=== PATIENT | male | born 1950 | race Caucasian/White ===

== ENCOUNTER → 2019-03-22 09:25 | Outpatient (CLI) | payer MEDICARE, OTHER, SELFPAY ==
[2019-03-22 10:08] LABS: Hematocrit 46.3 % (41-53); Mean Corpuscular HGB Conc 34.6 % (30-36); Mean Corpuscular Hemoglobin 33.6 PG (26-34); Mean Corpuscular Volume 96.9 fL (80-100); Platelet Count 239 X10^3/uL (150-400); Red Blood Cell Count 4.78 X10^6/uL (4.5-5.9); Red Cell Distribution Width 13.1 % (11.6-14.8); White Blood Cell Count 7.6 X10^3/uL (4.5-11.0)
[2019-03-22 10:19] LABS: Appearance Urine UA CLEAR; Bilirubin Urine UA NEGATIVE (NEGATIVE); Color Urine UA YELLOW; Glucose Urine UA NEGATIVE (Negative); Ketones Urine UA NEGATIVE (NEGATIVE); Leukocyte Esterase Urine UA NEGATIVE (NEGATIVE); Nitrite Urine UA NEGATIVE (Negative); Occult Blood Urine UA NEGATIVE (Negative); Protein Urine UA NEGATIVE (Negative); Specific Gravity Urine UA 1.015 (1.000-1.035); Urobilinogen Urine UA 0.2 E.U./dL (0.2)
[2019-03-22 10:44] LABS: Alanine Aminotransferase 31 IU/L (21-72); Albumin 4.4 g/dL (3.5-5.0); Albumin Globulin Ratio 1.7 (1.0-2.8); Alkaline Phosphatase 60 U/L (38-126); Aspartate Aminotransferase 26 IU/L (17-59); BUN Creatinine Ratio 16.3 (6-22); Blood Urea Nitrogen 13 mg/dL (9-20); Calcium 9.9 mg/dL (8.4-10.2); Carbon Dioxide 29 mmol/L (22-32); Chloride 103 mmol/L (98-107); Estimated Glomerular Filt Rate > 60.0 mL/min (>60); Globulin 2.6 g/dL (1.7-4.1); Glucose 91 mg/dL (80-110); HEMOLYSIS < 15 (0-50); Potassium 4.8 mmol/L (3.4-5.1); Sodium 141 mmol/L (137-145)
[2019-03-22 11:11] LABS: Thyroid Stimulating Hormone 1.87 uIU/mL (0.47-4.68)
[2019-03-22 11:12] LABS: Prostate Specific Antigen Scrn 0.794 ng/mL (0.1-4.0)
[2019-03-22 11:52] LABS: Neutrophils Absolute Manual 4028 /uL (3000-5900); RBC Morphology Normal Morphology; Total Cells Counted 100
== END ==
PROVIDERS: Visit Provider Family Medicine
DX: I10 Essential (primary) hypertension (principal); I99.9 Unspecified disorder of circulatory system; Z12.5 Encounter for screening for malignant neoplasm of prostate; Z51.81 Encounter for therapeutic drug level monitoring
CPT/HCPCS: 36415; 80053; 81003; 84443; 85025; G0103

== ENCOUNTER → 2019-03-29 08:56 | Outpatient (CLI) | payer MEDICARE, OTHER, SELFPAY ==
--- NOTE | 2019-03-29 | DI.ECHO.S_ITS ---
[facility] +---------+ : : [address] : [place] : : : : [id number] : : : : Phone: [phone]+ Echocardiogram Report + + :Name: DIPAK PATEL Study Date: 03/29/2019 Height: 74 in : :[facility] Exam Location: IS Weight: 268 lb : : Gender: Male BSA: 2.5 m2 : :: 1950 Age: 68 yrs BP: 132/78 mmHg: :Reason For Study: Murmur : :Ordering Physician: Kobi Morgan : :Stephanie Performed By: Shanna Page : + + Interpretation Summary 1) Normal left ventricular thickness, size, and systolic functoin (EF 60-65%). 2) Normal right ventricular size and function. 3) Mild calcific aortic valve but no valvular stenosis and regurgitation are present. 4) The ascending aorta is mildly enlarged at 4.0cm. 5) No prior Echo available for comparison. Procedure: A two-dimensional transthoracic echocardiogram with color flow and Doppler was performed. The study quality was technically adequate. There is no prior echocardiogram noted for this patient. The patient was in normal sinus rhythm during the exam. Left Ventricle: The left ventricle is normal in size. There is normal left ventricular wall thickness. The ejection fraction is estimated to be 60-65%. There are no obvious focal wall motion abnormalities noted but poor endocardial definition reduces the sensitivity for the detection of such. Right Ventricle: The right ventricle is normal in size and function. Atria: Both atria are mildly dilated. There is no Doppler evidence for an interatrial shunt. Mitral Valve: The mitral valve is grossly normal. There is mild mitral annular calcification. There is mild mitral regurgitation. Aortic Valve: The aortic valve is grossly normal. The aortic valve opens well. The aortic valve is mildly calcified. No aortic regurgitation is present. Tricuspid Valve: The tricuspid valve is not well visualized, but is grossly normal. There is a trace or physiologic amount of tricuspid regurgitation. The right ventricular systolic pressure is estimated to be at least 28 mmHg based on an estimated right atrial pressure of 8 mm Hg. Pulmonic Valve: The pulmonic valve is not well visualized. There is trace pulmonic regurgitation. Great Vessels: The aortic root is normal size. The ascending aorta is mildly enlarged. The pulmonary is not well visualized. The IVC is of normal diameter and collapses less than 50% with a sniff. This suggests a right atrial pressure of 8 mm Hg. Pericardium/ Pleura There is no pericardial effusion. There is no pleural effusion. MMode/2D Measurements & Calculations LVIDd: 5.2 cm LVOT diam: 2.5 cm LVIDs: 3.8 cm Ao root diam: 3.5 cm FS: 27.7 % asc Aorta Diam: 4.0 cm IVSd: 0.86 cm LVPWd: 0.92 cm LV riley. diameter/BSA (cm/m^2): 2.1 LV sys. diameter/BSA (cm/m^2): 1.5 LA A2 area: 22.1 cm2 RA long axis: 5.4 cm LA A4 area: 27.6 cm2 RA area: 25.3 cm2 LA length (vol): 5.7 cm RA vol: 101.1 ml LA vol: 90.8 ml RA : 41.1 ml/m2 LA vol index: 36.9 ml/m2 IVC diam: 1.8 cm RVD1 (basal): 4.4 cm RVD2 (mid): 4.4 cm TAPSE: 2.6 cm Doppler Measurements & Calculations Ao V2 max: 118.2 cm/sec LVOT Max Babar: 83.3 cm/sec Ao V2 mean: 83.4 cm/sec LV V1 max P.8 mmHg Ao max P.6 mmHg LV V1 VTI: 16.6 cm Ao mean P.0 mmHg PAVEL(I,D): 3.8 cm2 Ao V2 VTI: 22.2 cm PAVEL(V,D): 3.6 cm2 sev ratio: 0.75 PAVEL indexed to BSA (cm^2/m^2): 1.5 MV E max babar: 67.1 cm/sec TR max babar: 221.6 cm/sec MV A max babar: 62.7 cm/sec TR max P.6 mmHg MV E/A: 1.1 PA V2 max: 70.5 cm/sec Med Peak E' Babar: 6.1 cm/sec PA V2 mean: 50.7 cm/sec E/E' med: 11.0 PA mean P.1 mmHg Lat Peak E' Babar: 8.9 cm/sec PA Accel Time: 0.12 sec E/E' lat: 7.6 E/e' average: 9.3 MV dec time: 0.23 sec MV P1/2t: 68.2 msec MV P1/2t max babar: 67.5 cm/sec SV(LVOT): 83.7 ml MVA(P1/2t): 3.2 cm2 Reading Physician:12:24 PM
== END ==
PROVIDERS: Visit Provider Internal Medicine Cardiovascular Disease
DX: I34.0 Nonrheumatic mitral (valve) insufficiency (principal); R01.1 Cardiac murmur, unspecified; I77.89 Other specified disorders of arteries and arterioles
CPT/HCPCS: 93306

== ENCOUNTER → 2019-05-10 07:53 | Outpatient (CLI) | payer MEDICARE, OTHER, SELFPAY ==
[2019-05-10 08:58] LABS: BUN Creatinine Ratio 18.9 (6-22); Blood Urea Nitrogen 17 mg/dL (9-20); Calcium 9.6 mg/dL (8.4-10.2); Carbon Dioxide 30 mmol/L (22-32); Chloride 103 mmol/L (98-107); Cholesterol 99 mg/dL (140-199); Estimated Glomerular Filt Rate > 60.0 mL/min (>60); Glucose 110 mg/dL (80-110); HDL Cholesterol 39 mg/dL (40-60); HEMOLYSIS < 15 (0-50); LDL Cholesterol Calculated 35 mg/dL (<100); Potassium 4.5 mmol/L (3.4-5.1); Sodium 142 mmol/L (137-145); Triglycerides 124 mg/dL (35-150)
[2019-05-15 11:40] LABS: Lipoprotein (a) 33 nmol/L (<75)
== END ==
PROVIDERS: Family Provider Family Medicine; PCP Family Medicine; Visit Provider Internal Medicine Cardiovascular Disease
DX: R93.1 Abnormal findings on diagnostic imaging of heart and coronary circulation (principal); E78.2 Mixed hyperlipidemia; I10 Essential (primary) hypertension
CPT/HCPCS: 36415; 80048; 80061; 83695

== ENCOUNTER → 2020-01-04 15:04 | Outpatient (CLI) | payer MEDICARE, OTHER, SELFPAY ==
[2020-01-07 13:36] LABS: Fecal Immunochemical Test Positive (Negative)
== END ==
PROVIDERS: Family Provider Family Medicine; PCP Internal Medicine; Referring Provider Internal Medicine; Visit Provider Internal Medicine
DX: Z12.11 Encounter for screening for malignant neoplasm of colon (principal)
CPT/HCPCS: 82274

== ENCOUNTER → 2020-01-31 12:45 | Outpatient (CLI) | payer MEDICARE, OTHER, SELFPAY | PROVIDERS: Family Provider Internal Medicine; PCP Internal Medicine; Referring Provider Internal Medicine; Visit Provider Internal Medicine | DX: G57.93 Unspecified mononeuropathy of bilateral lower limbs (principal) | CPT/HCPCS: 95886; 95911 ==

== ENCOUNTER → 2020-02-13 08:17 | Outpatient (CLI) | payer MEDICARE, OTHER, SELFPAY ==
[2020-02-13 10:07] LABS: Hemoglobin A1C% w Est Avg Glu 5.6 % (4.0-6.0)
[2020-02-13 10:09] LABS: Alanine Aminotransferase 19 IU/L (<50); Albumin 4.1 g/dL (3.5-5.0); Albumin Globulin Ratio 1.6 (1.0-2.8); Alkaline Phosphatase 62 U/L (38-126); Aspartate Aminotransferase 27 IU/L (17-59); Blood Urea Nitrogen 16 mg/dL (9-20); Calcium 9.4 mg/dL (8.4-10.2); Carbon Dioxide 27 mmol/L (22-32); Chloride 105 mmol/L (98-107); Cholesterol 87 mg/dL (140-199); Estimated Glomerular Filt Rate > 60.0 mL/min (>60); Globulin 2.6 g/dL (1.7-4.1); Glucose 108 mg/dL (80-110); HDL Cholesterol 30 mg/dL (40-60); HEMOLYSIS < 15 (0-50); LDL Cholesterol Calculated 29 mg/dL (<100); Sodium 139 mmol/L (137-145); Total Protein 6.7 g/dL (6.3-8.2); Triglycerides 138 mg/dL (35-150)
[2020-02-14 13:36] LABS: Arsenic 15 ug/L (2-23); Mercury, Blood 3.6 ug/L (0.0-14.9)
[2020-02-14 15:10] LABS: ANA Screen, IFA Negative (.)
== END ==
PROVIDERS: Family Provider Internal Medicine; PCP Internal Medicine; Referring Provider Internal Medicine; Visit Provider Internal Medicine
DX: E78.2 Mixed hyperlipidemia (principal); G62.9 Polyneuropathy, unspecified; I10 Essential (primary) hypertension
CPT/HCPCS: 36415; 80053; 80061; 83036; 83825; 86038

== ENCOUNTER → 2020-10-22 11:20 | Outpatient (CLI) | payer MEDICARE, OTHER, SELFPAY ==
[2020-10-22 13:16] LABS: COVID19 -Nasal RAPID Negative (Negative)
== END ==
PROVIDERS: Family Provider Internal Medicine; PCP Internal Medicine; Visit Provider Physician Assistant
DX: Z01.812 Encounter for preprocedural laboratory examination (principal); Z20.822 Contact with and (suspected) exposure to COVID-19
CPT/HCPCS: 87635; C9803

== ENCOUNTER → 2020-10-23 08:11 | Outpatient (CLI) | payer MEDICARE, OTHER, SELFPAY ==
--- NOTE | 2020-10-23 | DI.NM.S_ITS ---
PROCEDURE: NM CLARE PERF SPECT REST & STR Rest and exercise myocardial perfusion SPECT with gated imaging and ejection fraction RADIOPHARMACEUTICAL: 15.6 mCi Tc-99m sestamibi IV at rest and 27.1 mCi Tc-99m sestamibi IV at peak exercise. A one day-protocol was performed. INDICATIONS: chest pain, high calcium score TECHNIQUE: Radiopharmaceutical was injected at peak stress test, and also at rest. SPECT images were obtained. SPECT myocardial perfusion images were displayed in short axis, horizontal long axis, and vertical long axis views. Gated images were reviewed using Heatmaps software. COMPARISON: None. CARDIAC STRESS: A standard Blanco treadmill exercise tolerance test was performed by the patient under the supervision of an attending staff. The patient exercised for 3 minutes and 25 seconds; functional aerobic impairment (TRACI) is +42%. Hemodynamic data: There is normal blood pressure and heart rate response to exercise stress. Patient achieved 93% of maximum predicted heart rate at peak exercise. Symptoms: Patient had 3/10 chest pain during early recovery that resolved within 2 minutes of onset. EKG: No diagnostic EKG changes of ischemia; frequent PVCs. FINDINGS: Raw data: There is good myocardial labeling by radiotracer. No significant motion artifacts. Hqqu-io-wahff ratio is 0.27 (normal is less than 0.38 for sestamibi tracer, and less than 0.50 for thallium tracer). Left ventricle function: Gated images demonstrate normal left ventricle wall thickening. No segmental wall motion abnormality. No transient ischemic dilation; TID is 0.91 (normal less than 1.3). The left ventricle resting end-diastolic volume is 207 mL. Left ventricle stress ejection fraction is 76%; normal values are above 45%. Myocardial perfusion: There is normal distribution of activity in the left and right ventricular myocardium. No fixed or reversible perfusion defects. IMPRESSION: Low risk, normal treadmill nuclear stress test 1) No perfusion evidence of ischemia or infarction. 2) Enlarged left ventricle (resting EDV 207cc) with normal wall motion, and normal systolic function (EF post stress 76%). 3) No ECG evidence of ischemia. Frequent PVCs during recovery. 4) No-diagnostic chest pain during early recovery that resolved within 2 minutes of onset. 5) Reduced exercise tolerance (4.6 METs, TRACI +42%). Target heart rate achieved. Appropriate BP response to exercise. 6) No prior nuclear stress test available for comparison. Dictated by: Kobi Brown MD on 10/23/2020 at 16:50 Approved by: Kobi Brown MD on 10/23/2020 at 16:55
--- NOTE | 2020-10-23 15:16 | PM.TREADMILL ---
Cardiac Stress Test Report Referral & Results Date Patient Seen: 10/23/20 Time Patient Seen: 15:16 Requesting provider: Kobi Brown Indication: abnormal findings on diagnostic imaging Rest ECG: sinus rhythm Procedure Note: Standard Blanco protocol, 3:25, 4.5 METS Reduced exercise capacity, TRACI +42% Normal hemodynamic response to exercise 3/10 sternal chest discomfort 1:09 into recovery; resolved 3:38 in recovery; no ST changes No significant ST changes at peak exercise Frequent PVCs and occasional couplets Impression: Normal exercise stress test Please note: Actual ECG tracings can be found in the PACS system.
== END ==
PROVIDERS: Family Provider Internal Medicine; PCP Internal Medicine; Referring Provider Internal Medicine Cardiovascular Disease; Visit Provider Internal Medicine Cardiovascular Disease
DX: R93.1 Abnormal findings on diagnostic imaging of heart and coronary circulation (principal); I51.7 Cardiomegaly
CPT/HCPCS: 78452; 93017; A9502

== ENCOUNTER → 2020-10-28 07:57 | Outpatient (CLI) | payer MEDICARE, OTHER, SELFPAY ==
[2020-10-28 09:31] LABS: Add Manual Diff / Slide Review NO; Basophils Absolute Auto 200 /uL (0-100); Basophils Percent Auto 2.2 % (0-2); Eosinophils Absolute Auto 200 /uL (0-450); Eosinophils Percent Auto 2.1 % (2-4); Hematocrit 45.3 % (41-53); Hemoglobin 15.4 g/dL (13.5-17.5); Lymphocytes Absolute Auto 2600 /uL (1100-4500); Mean Corpuscular HGB Conc 33.9 % (30-36); Mean Corpuscular Hemoglobin 32.9 PG (26-34); Mean Corpuscular Volume 97.1 fL (80-100); Monocytes Absolute Auto 1000 /uL (0-900); Monocytes Percent Auto 13.2 % (3-14); Neutrophils Absolute Auto 3800 /uL (1500-7000); Neutrophils Percent Auto 48.5 % (50-75); Platelet Count 225 X10^3/uL (150-400); Red Blood Cell Count 4.66 X10^6/uL (4.5-5.9); Red Cell Distribution Width 12.9 % (11.6-14.8); White Blood Cell Count 7.8 X10^3/uL (4.5-11.0)
[2020-10-28 10:05] LABS: BUN Creatinine Ratio 15.7 (6-22); Blood Urea Nitrogen 14 mg/dL (9-20); Calcium 9.4 mg/dL (8.4-10.2); Carbon Dioxide 30 mmol/L (22-32); Chloride 104 mmol/L (98-107); Cholesterol 87 mg/dL (140-199); Estimated Glomerular Filt Rate > 60.0 mL/min (>60); Glucose 108 mg/dL (80-110); HDL Cholesterol 40 mg/dL (40-60); HEMOLYSIS < 15 (0-50); LDL Cholesterol Calculated 24 mg/dL (<100); Potassium 4.6 mmol/L (3.4-5.1); Sodium 139 mmol/L (137-145); Triglycerides 116 mg/dL (35-150)
== END ==
PROVIDERS: Family Provider Internal Medicine; PCP Internal Medicine; Referring Provider Internal Medicine Cardiovascular Disease; Visit Provider Internal Medicine Cardiovascular Disease
DX: I10 Essential (primary) hypertension (principal)
CPT/HCPCS: 36415; 80048; 80061; 85025

== ENCOUNTER → 2020-11-21 13:59 | Outpatient (CLI) | payer MEDICARE, OTHER, SELFPAY | PROVIDERS: Family Provider Internal Medicine; PCP Internal Medicine; Visit Provider Physician Assistant | DX: N34.3 Urethral syndrome, unspecified (principal) | CPT/HCPCS: 87086 ==

== ENCOUNTER → 2021-04-21 08:58 | Outpatient (CLI) | payer MEDICARE, OTHER, SELFPAY ==
[2021-04-21 10:18] LABS: BUN Creatinine Ratio 20.3 (6-22); Blood Urea Nitrogen 16 mg/dL (9-20); Calcium 9.5 mg/dL (8.4-10.2); Carbon Dioxide 27 mmol/L (22-32); Chloride 107 mmol/L (98-107); Estimated Glomerular Filt Rate > 60.0 mL/min (>60); Glucose 106 mg/dL (80-110); HEMOLYSIS 19 (0-50); Potassium 4.2 mmol/L (3.4-5.1); Sodium 142 mmol/L (137-145)
[2021-04-21 10:30] LABS: Hemoglobin A1C% w Est Avg Glu 5.6 % (4.0-6.0)
== END ==
PROVIDERS: Family Provider Internal Medicine; PCP Internal Medicine; Referring Provider Internal Medicine; Visit Provider Internal Medicine
DX: E78.2 Mixed hyperlipidemia (principal); R73.9 Hyperglycemia, unspecified; G60.3 Idiopathic progressive neuropathy; I10 Essential (primary) hypertension
CPT/HCPCS: 36415; 80048; 83036

== ENCOUNTER → 2021-12-03 10:31 | Outpatient (CLI) | payer MEDICARE, OTHER, SELFPAY ==
[2021-12-03 11:12] LABS: Add Manual Diff / Slide Review NO; Basophils Absolute Auto 100 /uL (0-100); Eosinophils Absolute Auto 100 /uL (0-450); Eosinophils Percent Auto 1.5 % (2-4); Hematocrit 44.3 % (41-53); Hemoglobin 15.5 g/dL (13.5-17.5); Lymphocytes Absolute Auto 2100 /uL (1100-4500); Lymphocytes Percent Auto 33.8 % (25-40); Mean Corpuscular HGB Conc 34.9 % (30-36); Mean Corpuscular Hemoglobin 33.2 PG (26-34); Mean Corpuscular Volume 95.2 fL (80-100); Monocytes Absolute Auto 1000 /uL (0-900); Monocytes Percent Auto 15.9 % (3-14); Neutrophils Absolute Auto 3000 /uL (1500-7000); Neutrophils Percent Auto 47.8 % (50-75); Platelet Count 201 X10^3/uL (150-400); Red Blood Cell Count 4.66 X10^6/uL (4.5-5.9); Red Cell Distribution Width 13.5 % (11.6-14.8); White Blood Cell Count 6.3 X10^3/uL (4.5-11.0)
[2021-12-03 11:50] LABS: Alanine Aminotransferase 17 IU/L (<50); Albumin 4.3 g/dL (3.5-5.0); Albumin Globulin Ratio 1.6 (1.0-2.8); Alkaline Phosphatase 65 U/L (38-126); Amylase 64 U/L (30-110); Aspartate Aminotransferase 25 IU/L (17-59); BUN Creatinine Ratio 17.8 (6-22); Bilirubin Total 0.8 mg/dL (0.2-1.3); Blood Urea Nitrogen 16 mg/dL (9-20); Carbon Dioxide 29 mmol/L (22-32); Chloride 108 mmol/L (98-107); Estimated Glomerular Filt Rate > 60 mL/min (>60); Globulin 2.7 g/dL (1.7-4.1); Glucose 98 mg/dL (80-110); HEMOLYSIS < 15 (0-50); Lipase 79 U/L (23-300); Potassium 4.2 mmol/L (3.4-5.1); Sodium 142 mmol/L (137-145)
[2021-12-04 12:36] LABS: Interpretation Negative (Negative)
== END ==
PROVIDERS: Family Provider Internal Medicine; PCP Internal Medicine; Referring Provider Registered Nurse Diabetes Educator; Visit Provider Registered Nurse Diabetes Educator
DX: R10.11 Right upper quadrant pain (principal); R10.13 Epigastric pain; R14.2 Eructation
CPT/HCPCS: 36415; 80053; 82150; 83013; 83690; 85025

== ENCOUNTER → 2021-12-24 08:18 | Outpatient (CLI) | payer MEDICARE, OTHER, SELFPAY ==
--- NOTE | 2021-12-24 08:21 | DI.US.S_ITS ---
PROCEDURE: US ABDOMEN LIMITED INDICATIONS: RIGHT UPPER QUADRANT PAIN; BLOATING; EPIGASTRIC PAIN TECHNIQUE: Real-time focused scanning was performed of the abdomen, with image documentation. COMPARISON: None. FINDINGS: The liver demonstrates normal size. The liver demonstrates a coarsened echotexture, with increased echogenicity, with a focus of relatively increased echogenicity along the anterior liver that measures 8.2 x 9.2 x 4.9 cm. There is a nonvascular 1.5 cm liver cyst seen adjacent to the gallbladder. Numerous small stones are seen within the gallbladder. The gallbladder wall is not thickened, measuring 3 mm or less. No specific pericholecystic fluid is seen. The sonographic Goetz sign is negative. There is no biliary dilatation, the common bile duct measures 6-7 mm. The pancreas is not seen, secondary to overlying bowel gas. Additional, dedicated ultrasound scanning is performed at the area of the abdominal scar pain. No focal ultrasound abnormalities are seen within this region. IMPRESSION: Small layering gallstones are seen, yet without additional sonographic signs of cholecystitis. Negative for biliary dilatation. Please correlate with physical examination findings, patient presentation, and laboratory values. No ultrasound abnormalities are seen at the area of the abdominal wall scar pain. Heterogeneous liver, with suspicion for inhomogeneous fatty liver infiltration. Dictated by: Montrell Sanchez M.D. on 12/24/2021 at 8:58 Approved by: Montrell Sanchez M.D. on 12/24/2021 at 9:00
== END ==
PROVIDERS: Family Provider Internal Medicine; PCP Internal Medicine; Referring Provider Registered Nurse Diabetes Educator; Visit Provider Registered Nurse Diabetes Educator
DX: R10.13 Epigastric pain (principal); R14.2 Eructation; R10.11 Right upper quadrant pain; K80.20 Calculus of gallbladder without cholecystitis without obstruction
CPT/HCPCS: 76705

== ENCOUNTER → 2022-04-13 08:57 | Outpatient (CLI) | payer MEDICARE, OTHER, SELFPAY ==
[2022-04-13 10:45] LABS: Add Manual Diff / Slide Review NO; Basophils Absolute Auto 100 /uL (0-100); Basophils Percent Auto 1.2 % (0-2); Eosinophils Absolute Auto 200 /uL (0-450); Eosinophils Percent Auto 2.9 % (2-4); Hematocrit 45.7 % (41-53); Lymphocytes Absolute Auto 2600 /uL (1100-4500); Lymphocytes Percent Auto 38.6 % (25-40); Mean Corpuscular Hemoglobin 33.2 PG (26-34); Mean Corpuscular Volume 94.9 fL (80-100); Monocytes Absolute Auto 800 /uL (0-900); Monocytes Percent Auto 12.1 % (3-14); Neutrophils Absolute Auto 3100 /uL (1500-7000); Neutrophils Percent Auto 45.2 % (50-75); Platelet Count 212 X10^3/uL (150-400); Red Blood Cell Count 4.82 X10^6/uL (4.5-5.9); Red Cell Distribution Width 13.4 % (11.6-14.8); White Blood Cell Count 6.8 X10^3/uL (4.5-11.0)
[2022-04-13 10:58] LABS: BUN Creatinine Ratio 17.2 (6-22); Blood Urea Nitrogen 15 mg/dL (9-20); Calcium 8.9 mg/dL (8.4-10.2); Carbon Dioxide 28 mmol/L (22-32); Chloride 102 mmol/L (98-107); Cholesterol 99 mg/dL (140-199); Estimated Glomerular Filt Rate > 60 mL/min (>60); Glucose 103 mg/dL (80-110); HDL Cholesterol 43 mg/dL (40-60); HEMOLYSIS < 15 (0-50); LDL Cholesterol Calculated 37 mg/dL (<100); Potassium 4.2 mmol/L (3.4-5.1); Sodium 141 mmol/L (137-145); Triglycerides 95 mg/dL (35-150)
== END ==
PROVIDERS: Family Provider Internal Medicine; PCP Internal Medicine; Referring Provider Internal Medicine Cardiovascular Disease; Visit Provider Internal Medicine Cardiovascular Disease
DX: E78.5 Hyperlipidemia, unspecified (principal); I10 Essential (primary) hypertension
CPT/HCPCS: 36415; 80048; 80061; 85025

== ENCOUNTER → 2022-05-07 12:02 | Outpatient (CLI) | payer MEDICARE, OTHER, SELFPAY ==
[2022-05-07 12:49] LABS: HEMOLYSIS < 15 (0-50); Iron 153 ug/dL (49-181)
[2022-05-07 12:50] LABS: Blood Urea Nitrogen 16 mg/dL (9-20); Calcium 9.1 mg/dL (8.4-10.2); Carbon Dioxide 31 mmol/L (22-32); Chloride 104 mmol/L (98-107); Estimated Glomerular Filt Rate > 60 mL/min (>60); Glucose 104 mg/dL (80-110); HEMOLYSIS < 15 (0-50); Potassium 4.6 mmol/L (3.4-5.1); Sodium 143 mmol/L (137-145)
[2022-05-07 12:59] LABS: Percent Iron Saturation 49 % (20-50); Total Iron Binding Capacity 314 ug/dL (261-462); Transferrin 220 mg/dL (206-381)
[2022-05-07 13:06] LABS: Free T4, Direct Thyroxine 0.94 ng/dL (0.78-2.19)
[2022-05-07 13:20] LABS: Thyroid Stimulating Hormone 2.41 uIU/mL (0.47-4.68)
[2022-05-16 16:34] LABS: 1,25-Dihydroxy, Vitamin D-2 35 pg/mL (.)
== END ==
PROVIDERS: Family Provider Internal Medicine; PCP Internal Medicine; Referring Provider Internal Medicine; Visit Provider Internal Medicine
DX: I10 Essential (primary) hypertension (principal); E55.9 Vitamin D deficiency, unspecified; E83.119 Hemochromatosis, unspecified; G60.3 Idiopathic progressive neuropathy
CPT/HCPCS: 36415; 80048; 82652; 83540; 83550; 84439; 84443

== ENCOUNTER → 2022-12-20 08:19 | Outpatient (CLI) | payer MEDICARE, OTHER, SELFPAY ==
--- NOTE | 2022-12-20 08:20 | DI.US.S_ITS ---
PROCEDURE: US ABDOMEN LIMITED INDICATIONS: F/U INHOMOGENOUS FATTY LIVER TECHNIQUE: Real-time focused scanning was performed of the abdomen, with image documentation. COMPARISON: [facility], US, US ABDOMEN LIMITED, 12/24/2021, 9:29. FINDINGS: Hyperechoic within the anterior liver is present, as before measuring roughly 80 mm x 40 mm by 79 mm which is not significantly changed. Multiple calculi within the gallbladder lumen. No biliary ductal dilatation. Pancreas is not well seen. There are 2 cysts seen within the right kidney measuring 40 mm and 35 mm. IMPRESSION: 1. No significant change in hyperechoic focus within the hepatic parenchyma. Dictated by: Hossein Rodriguez M.D. on 12/20/2022 at 13:41 Approved by: Hossein Rodriguez M.D. on 12/20/2022 at 13:42
== END ==
PROVIDERS: Family Provider Internal Medicine; PCP Internal Medicine; Referring Provider Registered Nurse Diabetes Educator; Visit Provider Registered Nurse Diabetes Educator
DX: K76.0 Fatty (change of) liver, not elsewhere classified (principal); N28.1 Cyst of kidney, acquired; K80.20 Calculus of gallbladder without cholecystitis without obstruction
CPT/HCPCS: 76705

== ENCOUNTER → 2023-01-26 08:21 | Outpatient (CLI) | payer MEDICARE, OTHER, SELFPAY ==
[2023-01-26 09:30] LABS: Alanine Aminotransferase 20 IU/L (<50); Albumin Globulin Ratio 1.5 (1.0-2.8); Alkaline Phosphatase 74 U/L (38-126); Aspartate Aminotransferase 24 IU/L (17-59); BUN Creatinine Ratio 13.6 (6-22); Bilirubin Total 0.9 mg/dL (0.2-1.3); Blood Urea Nitrogen 12 mg/dL (9-20); Calcium 9.1 mg/dL (8.4-10.2); Carbon Dioxide 29 mmol/L (22-32); Chloride 104 mmol/L (98-107); Cholesterol 93 mg/dL (140-199); Estimated Glomerular Filt Rate > 60 mL/min (>60); Globulin 2.6 g/dL (1.7-4.1); Glucose 102 mg/dL (80-110); HDL Cholesterol 38 mg/dL (40-60); HEMOLYSIS < 15 (0-50); LDL Cholesterol Calculated 33 mg/dL (<100); Potassium 4.5 mmol/L (3.4-5.1); Sodium 140 mmol/L (137-145); Total Protein 6.6 g/dL (6.3-8.2); Triglycerides 108 mg/dL (35-150)
== END ==
PROVIDERS: Family Provider Internal Medicine; PCP Internal Medicine; Referring Provider Internal Medicine; Visit Provider Internal Medicine
DX: I10 Essential (primary) hypertension (principal); E78.2 Mixed hyperlipidemia
CPT/HCPCS: 36415; 80053; 80061

== ENCOUNTER → 2023-05-02 11:23 | Outpatient (CLI) | payer MEDICARE, OTHER, SELFPAY ==
[2023-05-02 12:14] LABS: Hematocrit 45.1 % (41-53); Hemoglobin 15.8 g/dL (13.5-17.5); Mean Corpuscular Hemoglobin 33.6 PG (26-34); Platelet Count 250 X10^3/uL (150-400); Red Cell Distribution Width 13.2 % (11.6-14.8); White Blood Cell Count 8.7 X10^3/uL (4.5-11.0)
[2023-05-02 12:33] LABS: Add Manual Diff / Slide Review YES
[2023-05-02 12:49] LABS: Neutrophils Absolute Manual 4263 /uL (3000-5900); Total Cells Counted 100
[2023-05-02 12:51] LABS: Poikilocytosis 1+
== END ==
PROVIDERS: Family Provider Internal Medicine; PCP Internal Medicine; Referring Provider Internal Medicine Cardiovascular Disease; Visit Provider Internal Medicine Cardiovascular Disease
DX: I25.10 Atherosclerotic heart disease of native coronary artery without angina pectoris (principal)
CPT/HCPCS: 36415; 85007; 85025

== ENCOUNTER → 2025-02-05 15:19 | Outpatient (CLI) | payer MEDICARE, SELFPAY ==
--- NOTE | 2025-02-05 15:21 | DI.RAD.S_ITS ---
PROCEDURE: XR KNEE RT 3V INDICATIONS: knee pain TECHNIQUE: 3 views of the knee were acquired. COMPARISON: None. FINDINGS: Bones: There are no osseous abnormalities. Joints: The tibialfemoral and patellofemoral joints show severe degeneration. Small effusion. Mild lateral subluxation of the patella Soft tissues: Normal IMPRESSION: Severe degeneration Dictated by: Osmin Duque M.D. on 02/06/2025 at 13:39 Approved by: Osmin Duque M.D. on 02/06/2025 at 13:39
[2025-02-05 16:51] LABS: Add Manual Diff / Slide Review NO; Hematocrit 47.5 % (41-53); Hemoglobin 16.4 g/dL (13.5-17.5); Lymphocytes Absolute Auto 2300 /uL (1100-4500); Mean Corpuscular HGB Conc 34.5 % (30-36); Mean Corpuscular Hemoglobin 33.4 PG (26-34); Mean Corpuscular Volume 96.7 fL (80-100); Platelet Count 217 X10^3/uL (150-400)
[2025-02-05 17:39] LABS: Alanine Aminotransferase 19 IU/L (<50); Albumin 4.5 g/dL (3.5-5.0); Albumin Globulin Ratio 1.7 (1.0-2.8); Alkaline Phosphatase 67 U/L (38-126); Blood Urea Nitrogen 18 mg/dL (9-20); Calcium 9.4 mg/dL (8.4-10.2); Carbon Dioxide 25 mmol/L (22-32); Chloride 106 mmol/L (98-107); Estimated Glomerular Filt Rate > 60 mL/min (>60); Globulin 2.6 g/dL (1.7-4.1); Glucose 103 mg/dL (70-99); HEMOLYSIS < 15 (0-50); Magnesium 2.2 mg/dL (1.6-2.3); Potassium 4.8 mmol/L (3.4-5.1); Sodium 140 mmol/L (137-145); Total Protein 7.1 g/dL (6.3-8.2)
[2025-02-05 18:01] LABS: TSH w/ Reflex to FT4 1.77 uIU/mL (0.47-4.68)
== END ==
PROVIDERS: Family Provider Internal Medicine; PCP Internal Medicine; Referring Provider Internal Medicine; Visit Provider Internal Medicine
DX: M17.12 Unilateral primary osteoarthritis, left knee (principal); S83.011A Lateral subluxation of right patella, initial encounter; M25.461 Effusion, right knee; M25.569 Pain in unspecified knee; I10 Essential (primary) hypertension; E78.2 Mixed hyperlipidemia; I25.10 Atherosclerotic heart disease of native coronary artery without angina pectoris; D64.9 Anemia, unspecified; E03.9 Hypothyroidism, unspecified
CPT/HCPCS: 36415; 73562; 80053; 83735; 84443; 85025; 85651; 86140

== ENCOUNTER 2025-04-24 11:30 | Outpatient (RCR) | payer MEDICARE, SELFPAY ==
--- NOTE | 2025-02-19 18:31 | PT.OPPOC ---
Physical, Occupational & Speech Therapy At [facility] Current Diagnoses Pain in right knee (02/19/25) Sciatica, right side (02/19/25) Visit Care Team Role Provider Type Osmin Bryant MD Attending Provider Physician Family Provider Primary Care Provider Referring Provider Specialty: Internal Medicine Address: [address] [place] [address], [address], [facility] Email: [email or web address] Plan Of Care PT OP: Lower Back/Lower Extremity Start: 02/19/25 17:06 Freq: Status: Active Protocol: Document 02/19/25 17:06 [facility] (Rec: 02/19/25 17:46 [facility] [id number]) Out-Patient Physical Therapy Visit Information Visit Information Visit Type Initial Evaluation Visit Start Time 17:06 Visit Stop Time 17:46 Visit Number 1 Number of HOSPITAL NURSE LIAISON Visits 0 Progress Note Due 03/21/25 Current Condition History of Current Condition Onset Date chronic, worse in past year Current Complaints LBP,R hip, lat leg to lower leg, r lat and ant knee but can be all over History of Current Pt reports back and leg pain that has been going on Condition forever. 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 He had 3 real serious accidents. In early 30s, had tool dropped on his head and broke his neck. 2nd one, he fell off a roof where he had have spleen removed, punctured lung, broke some ribs on L. Broke R ankle and wrist when young and healed nonsurgically. 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 This was 12 years ago. numb from L hip to leg since this accident. R knee hurt when standing on a bank of stream and it gave way and R leg stayed up and L went down and tore R meniscus and had a bad bone bruise from it. THat was 8 years ago. Rehabed knee pretty well including a lot of biking. Tried to avoid surgeries as much as possible. LBP and sciatic has been ongoing for a long time but has just gotten worse lately. never done any PT for back but has for neck a few times which has helped. Does have severe R knee arthritis. For the last year, it has really acting up on him and gives him trouble w/walking. Stairs are painful Treatment Goals Patient/Caregiver do stairs better, work on better positioning to dec Goals load, do yard and house work w/less pain, be able to return to walking without pain or fear of not making it back. Patient Questionnaires Lower Extremity Functional Scale LEFS Score 35/80 Oswestry Low Back Index Oswestry Score 26% Balance Tests Single Limb Standing Single Limb- Right 7 sec, pain Single Limb- Left 5 sec OP Gait Assessment Comments Gait Comments dec RLE stance time and dec push off R>L, fwd flex of trunk, lat lean over RLE Posture Evaluation Heather Postural Classification System Lumbar Protective 0 Mechanism Left AP Lumbar Protective 1 Mechanism Right AP Lumbar Protective 0 Mechanism Left PA Lumbar Protective 0 Mechanism Right PA Comments Posture Comments fwd head and flex neck, kyphosis, loss of lordosis, LLE toes out, pronation B, wt shifted on LLE Lumbar Spine Range of Motion Lumbar Spine Active Percentage Flexion 25 Extension 10 Rotation Left 20 Rotation Right 20 Lateral Flexion Left 15 Lateral Flexion 25 Right ROM Limitations Pain Knee Goniometric Range of Motion Knee Measured in Degrees Right Flexion Active ( 116 degrees) Extension Active ( 4 degrees) Comments pain Left Flexion Active ( 120 degrees) Extension Active ( 3 degrees) Special Tests Hip Special Tests Jero Comments opp knee to chest w/opp LE straight; pain w/L hip flex w/dec range; B hip flexor tightness -quads not tested SLR Comments positive pain in R hip 38 deg R; L 42 Hip Strength Hip Manual Muscle Testing Right Flexion (L2) 3+ Fair+ Abduction 4- Good- External Rotation 4- Good- Internal Rotation 4+ Good+ Left Flexion (L2) 3+ Fair+ Abduction 3+ Fair+ External Rotation 4- Good- Internal Rotation 4+ Good+ Knee Strength Knee Manual Muscle Testing Right Flexion (S2) 4+ Good+ Extension (L3) 4- Good- Left Flexion (S2) 4 Good Extension (L3) 4- Good- Ankle/Foot Strength Ankle and Foot Manual Muscle Testing Right Dorsiflexion (L4) 5 Normal Plantarflexion (S1) 5 Normal Left Dorsiflexion (L4) 5 Normal Plantarflexion (S1) 4 Good Physical Therapy Assessment Rehab Potential Rehabilitation Good Potential Evaluation Complexity Number of Personal 3 or More Factors/ Comorbidities Number of Body 4 or More Systems Impaired Clinical Evolving Presentation at Evaluation Impairments Impairments Activity Tolerance,Balance,Functional Activities, Functional Mobility,Gait,Pain,Posture,ROM,Soft Tissue Mobility,Strength,Transfers Goals stairs Adult Day Care Worker Goal (LTG) Pt will be able to go up/down stairs reciprocally w/ rail w/o inc pain greater than 2/10 LTG Duration 05/20 activity Adult Day Care Worker Goal (LTG) Pt will be able to resume walks of at least 1/2 mile and be able to do house and yard work without pain greater than 2/10 in LB, RLE and R knee LTG Duration 05/20 strength Short Term Goal (STG Pt will be demonstrate ability to perform at least 4 ) HEP exercises w/o cues STG Duration 04/01 Adult Day Care Worker Goal (LTG) Pt will have 4+/5 hip abd strength and at least 3/5 LPM all planes to show improved strength to allow for ability to do typical ADLs w/dec pain. LTG Duration 05/20 Assessment Summary Assessment Pt presents w/chronic back pain and R knee pain with RLE n tension and symptoms and chronic LLE n symptoms. He has R Knee OA per imaging and does present w/RLE neural symptoms and positive neural tension testing. He has weakness of BLEs and core w/complicated injury history including multiple fractures. He has significant tightness and limited spinal ROM which likely exacerbates symptoms. He would benefit from skilled PT to address postural deficits, gait deviations, dec balance, core and LE strength in order to dec pain and improve ADL function. Physical Therapy Plan Frequency and Duration Frequency of 2x/Week Treatment Duration of 12 treatment (weeks) Plan of Care Start 02/19/25 Date Plan of Care End 05/20/25 Date Therapeutic Interventions Therapeutic Balance Training,Coordination Training,Gait Training, Interventions Home Exercise Program,Joint Mobilizations,Manual Therapy,Neuromuscular Re-education,Patient/Caregiver Education,Self-Care/Home Management,Soft Tissue Mobilization,Taping,Therapeutic Activities,Therapeutic Exercises Modalities Cold Pack/Ice Massage,Electric Stimulation,Hot Packs, Infrared Therapy,Traction- Mechanical,Ultrasound Next Visit Focus/Plan Next Note Type Treatment Note Next Visit Plan train on gym machines, manual to knee, pelvis, hips and back, balance Plan of Care Dates Plan of Care Start Date 02/19/25 Plan of Care End Date 05/20/25 Electronically Signed by: Charisma Jacob, PT 02/19/25 [id number] If you are in agreement with this Plan of Care, please return a signed and dated copy. I have reviewed this Plan of Care and certify that the skilled therapy services above are required to meet the patient?s needs. Physician Signature Date Printed Name and Credentials Clinical Instructor Signature Printed Name and Credentials
--- NOTE | 2025-02-26 18:16 | PT.OTN ---
Current Diagnoses Pain in right knee (02/26/25) Sciatica, right side (02/26/25) Physical Therapy Treatment Note PT OP: Lower Back/Lower Extremity Start: 02/19/25 17:06 Freq: Status: Active Protocol: Document 02/26/25 17:05 [facility] (Rec: 02/26/25 18:15 [facility] [id number]) Out-Patient Physical Therapy Visit Information Visit Information Visit Type Treatment Note Visit Start Time 17:05 Visit Stop Time 17:47 Visit Number 2 Number of CORK PRESSING MACHINE OPERATOR Visits 0 Progress Note Due 03/21/25 OP-PT Subjective Patient Comments Patient Comments Pt reports he will be gone for a week soon to visit family Cardio Equipment Recumbent Bicycle Duration (Minutes) 4 Resistance 5 Other inc time for set up Bicycle (Upright) Duration (Minutes) 4 Resistance 5 Other inc time for set up Gym Equipment Cable Column (Body Solid) Hip Adduction Details cues to set up and for core Resistance 3-4 Reps/Time 6 of each Hip Abduction Details edu on set up, cues for core Resistance 2 plates Reps/Time 10 Leg Extension Details stopped d/t HS cramp Resistance 2 plates Reps/Time 5 Leg Curl Resistance 5 plates Reps/Time 15 Lat Pull Down Details standing, cues control and posture, cues set up Resistance 3 plates Reps/Time 12 row Details cues posture, core, set up and scap squeeze Resistance 3 plates Reps/Time 15 Shuttle Recovery Bilateral Squats Resistance 75# Shuttle Recovery Stable Platform Reps/Time 12 Manual Therapy Treatment Taping KT tape Type of Tape Kinesio Tape Comments Y for quad and I for patella Physical Therapy Assessment Goals stairs Filler In Goal (LTG) Pt will be able to go up/down stairs reciprocally w/ rail w/o inc pain greater than 2/10 LTG Duration 05/20 activity Assisted Goal (LTG) Pt will be able to resume walks of at least 1/2 mile and be able to do house and yard work without pain greater than 2/10 in LB, RLE and R knee LTG Duration 11 strength Short Term Goal (STG Pt will be demonstrate ability to perform at least 4 ) HEP exercises w/o cues STG Duration 04/01 Assisted Goal (LTG) Pt will have 4+/5 hip abd strength and at least 3/5 LPM all planes to show improved strength to allow for ability to do typical ADLs w/dec pain. LTG Duration 05/20 Assessment Summary Assessment Pt did well with machines with inc time for set up and education. encouraged to set up at gym to start exercising on his own. He felt good with taping for R Knee Physical Therapy Plan Frequency and Duration Frequency of 2x/Week Treatment Duration of 12 treatment (weeks) Plan of Care Start 02/19/25 Date Plan of Care End 05/20/25 Date Next Visit Focus/Plan Next Note Type Treatment Note Next Visit Plan train on gym machines, manual to knee, pelvis, hips and back, balance
--- NOTE | 2025-03-05 16:32 | PT-OP ANOTE ---
Pt called re: no show and he states he was on his way from [place] as he thought his appointment was at 5pm and wouldn't get here until 445 pm (30 min late). Pt unable to reschedule d/t no openings at 5 pm and pt leaves for a trip in the morning. Pt reminded of his next appointment's time and apologizes profusely.
--- NOTE | 2025-03-20 10:34 | PT.OTN ---
Current Diagnoses Pain in right knee (03/20/25) Sciatica, right side (03/20/25) Physical Therapy Treatment Note PT OP: Lower Back/Lower Extremity Start: 02/19/25 17:06 Freq: Status: Active Protocol: Document 03/20/25 09:52 SP (Rec: 03/20/25 10:50 SP [id number]) Out-Patient Physical Therapy Visit Information Visit Information Visit Type Treatment Note Visit Start Time 09:52 Visit Stop Time 10:34 Visit Number 3 Number of RETAIL LINK ANALYST Visits 1 Progress Note Due 03/21/25 OP-PT Subjective Patient Comments Patient Comments Pt reports got back recently from moving items from storage unit in [place] to here. Now will take time to go through and weed out what stil need. Ktaping helped alot, need retaped. Cardio Equipment Recumbent Bicycle Duration (Minutes) 6 Resistance 5 Seat Position 10 Other inc time for set up Therapeutic Exercises Supine Exercises SAQ Supine Exercise Name added to HEP Side left Resistance AROM Equipment Used foam roll under L knee Reps/Minutes 10 sec hold x10 Comments cued slow lift/lower SLR Supine Exercise Name added to HEP Side right Resistance AROM Reps/Minutes 10 reps Comments cued TKE, slow lift/lower, not higher than opp knee Manual Therapy Treatment Consent Patient gave verbal Yes consent for manual treatment Soft Tissue Mobilization Legs Body Location R quad, ITB, patellar tendon Comments STMs discussion use rolling pin self Taping KT tape Body Location R knee Type of Tape Kinesio Tape Comments Y for quad (inferior>superior patella/ distal quad- patellar lift), lat>medial V for medial glide Self-Care/Home Management Treatment Education Patient Education Body Mechanics,Home Exercise Program,Joint Protection, Pain Management,Posture Other Education Took time reviewing POC goals and selecting HEP to assist improved strength and ROM to return to activities with less/no pain. Also postural education and TA to support decrease back pain, provide HEP hand outs and HO posture and pounds on spine for self awareness corections. Ed for kptaping and self video to do self if needed. Physical Therapy Assessment Goals stairs Jail Goal (LTG) Pt will be able to go up/down stairs reciprocally w/ rail w/o inc pain greater than 2/10 LTG Duration 11/3 activity Jail Goal (LTG) Pt will be able to resume walks of at least 1/2 mile and be able to do house and yard work without pain greater than 2/10 in LB, RLE and R knee LTG Duration 05/20 strength Short Term Goal (STG Pt will be demonstrate ability to perform at least 4 ) HEP exercises w/o cues STG Duration 04/01 Jail Goal (LTG) Pt will have 4+/5 hip abd strength and at least 3/5 LPM all planes to show improved strength to allow for ability to do typical ADLs w/dec pain. LTG Duration 05/20 Assessment Summary Assessment Pt improved quad engagement with initiated SLR, SAQ and standing hip abd with cues for postural corretions. GOod feedback response with HOs provided, cues for proper form and TA support, no pain. Physical Therapy Plan Frequency and Duration Frequency of 2x/Week Treatment Duration of 12 treatment (weeks) Plan of Care Start 02/19/25 Date Plan of Care End 05/20/25 Date Therapeutic Interventions Therapeutic Balance Training,Coordination Training,Gait Training, Interventions Home Exercise Program,Joint Mobilizations,Manual Therapy,Neuromuscular Re-education,Patient/Caregiver Education,Self-Care/Home Management,Soft Tissue Mobilization,Taping,Therapeutic Activities,Therapeutic Exercises Modalities Cold Pack/Ice Massage,Electric Stimulation,Hot Packs, Infrared Therapy,Traction- Mechanical,Ultrasound Next Visit Focus/Plan Next Note Type Treatment Note Next Visit Plan Next assess HEP, add wall postrure, manual knee and hip mobs, TA trng needed. POC: train on gym machines, manual to knee, pelvis, hips and back, balance
--- NOTE | 2025-03-22 17:20 | PT-OP ANOTE ---
Pt cancelled today's appt via text prior to appt.
--- NOTE | 2025-03-27 19:01 | PT.OPPN ---
Current Diagnoses Pain in right knee (03/27/25) Sciatica, right side (03/27/25) Physical Therapy Progress Note PT OP: Lower Back/Lower Extremity Start: 02/19/25 17:06 Freq: Status: Active Protocol: Document 03/27/25 11:39 [facility] (Rec: 03/27/25 12:41 [facility] [id number]) Out-Patient Physical Therapy Visit Information Visit Information Visit Type Progress Note Visit Start Time 11:37 Visit Stop Time 12:30 Visit Number 4 Number of BOX STACKER Visits 0 Progress Note Due 04/26/25 Posture Evaluation [facility] Postural Classification System Lumbar Protective 2 Mechanism Left AP Lumbar Protective 1 Mechanism Right AP Lumbar Protective 2 Mechanism Left PA Lumbar Protective 2 Mechanism Right PA Hip Strength Hip Manual Muscle Testing Right Flexion (L2) 4+ Good+ Abduction 4- Good- External Rotation 5 Normal Internal Rotation 5 Normal Left Flexion (L2) 4- Good- Abduction 4- Good- External Rotation 5 Normal Internal Rotation 5 Normal Knee Strength Knee Manual Muscle Testing Right Flexion (S2) 4+ Good+ Extension (L3) 4 Good Left Flexion (S2) 4+ Good+ Extension (L3) 4 Good Ankle/Foot Strength Ankle and Foot Manual Muscle Testing Right Dorsiflexion (L4) 5 Normal Left Dorsiflexion (L4) 5 Normal Therapeutic Exercises Sitting Exercises pelvic tilt Reps/Minutes 2x10 Comments max cues for use of pelvis stretch Sitting Exercise 1. rotation stretch Name Side bilateral Reps/Minutes 30 sec ea Comments cues posture Standing Exercises stretch Standing Exercise rodney pose at counter Name Side bilateral Reps/Minutes 45 sec Comments cues for position sidestep Side bilateral Equipment Used L2 at ankles Reps/Minutes 20ft ea Comments cues posture and no SB Manual Therapy Treatment Consent Patient gave verbal Yes consent for manual treatment Soft Tissue Mobilization hip Body Location R glutes, piriformis Mobilization Type Rolling,Sustained Pressure Intensity/Depth Moderate Body Position Sidelying back Body Location R ES and QL Mobilization Type Rolling Intensity/Depth Moderate Body Position Sidelying Comments w/cupping and MFR Taping Back Comments I strip along SI KT tape Body Location R knee Type of Tape Kinesio Tape Comments Y for quad (inferior>superior patella/ distal quad- patellar lift), lat>medial V for medial glide Electric Stimulation Electric Stimulation Interferential Current (IFC) Body Location lumbar Intensity 15 Patient Position Sitting Combined With Heat/ Hot Pack Cold Physical Therapy Assessment Goals stairs Die Presser Goal (LTG) Pt will be able to go up/down stairs reciprocally w/ rail w/o inc pain greater than 2/10 LTG Duration achieved 03/27 activity Die Presser Goal (LTG) Pt will be able to resume walks of at least 1/2 mile and be able to do house and yard work without pain greater than 2/10 in LB, RLE and R knee 03/27-3-10 R knee, back 01/24 with yard and house work and driving, doing so much building so hasn't walked LTG Duration 05/20 strength Short Term Goal (STG Pt will be demonstrate ability to perform at least 4 ) HEP exercises w/o cues 03/27-new focused HEP given STG Duration 04/01 Retirement Goal (LTG) Pt will have 4+/5 hip abd strength and at least 3/5 LPM all planes to show improved strength to allow for ability to do typical ADLs w/dec pain. 03/27-improving LTG Duration 05/20 Assessment Summary Assessment Pt making good progress towards goals with R knee pain w/much dec pain but still struggles with back pain limiting him. He would benefit from cont PT to focus on glute med and core strength along w/improve flexibility and dec pain Physical Therapy Plan Frequency and Duration Frequency of 2x/Week Treatment Duration of 12 treatment (weeks) Plan of Care Start 02/19/25 Date Plan of Care End 05/20/25 Date Next Visit Focus/Plan Next Note Type Treatment Note Next Visit Plan review exercises, focus on back pain ; manual for back and pelvis, core exercises, assess response to Estim
--- NOTE | 2025-04-10 09:56 | PT.OTN ---
Current Diagnoses Pain in right knee (04/10/25) Sciatica, right side (04/10/25) Physical Therapy Treatment Note PT OP: Lower Back/Lower Extremity Start: 02/19/25 17:06 Freq: Status: Active Protocol: Document 04/10/25 09:04 SP (Rec: 04/10/25 10:47 SP [id number]) Out-Patient Physical Therapy Visit Information Visit Information Visit Type Treatment Note Visit Note ART Barnes observed tx with pt permission. Visit Start Time 09:04 Visit Stop Time 09:56 Visit Number 5 Number of PBX WIRE CHIEF Visits 1 Progress Note Due 04/26/25 OP-PT Subjective Patient Comments Patient Comments Pt reports his R knee is doing better. The manual, Estim and ktaping helped his back and R knee feel alot better, the best has been in a while. He has been building a shed/studio for his and sore coming in his back. Therapeutic Exercises Standing Exercises Wall POsture Standing Exercise added to HEP with HO Name Equipment Used cont cues chin tuck/CS retraction neutral (limited, not able head on wall) Reps/Minutes 10 sh x5-10 Comments cued buttocks, spine roll up wall, TS and TA engagment, arms side Shld ER Pec stretch Standing Exercise added to HEP with HO Name Side bilateral Reps/Minutes 30-60 sec Comments little limited in RUE abd/ER ondoorframe- cued pnfree range. Other Exercises SELF STMs Other Exercise Name self ball on wall- ES, QL, glut med, TFL Side right Equipment Used racquetball Reps/Minutes 2 min total Comments good feedback response Therapeutic Activity Therapeutic Activity body mechanics Reps/Minutes 8 min Comments verbal review posture with rhomboid and core draw in engagement and hip hinge squat motion mechanics to support back stabilization and painr education. Manual Therapy Treatment Consent Patient gave verbal Yes consent for manual treatment Soft Tissue Mobilization hip Body Location R glutes, piriformis Mobilization Type Rolling,Sustained Pressure,Other Intensity/Depth Moderate Body Position Prone Comments STMs and MWM hip ERs during AROM hip IR/ER back Body Location R ES and QL, superior glut med Mobilization Type Rolling Intensity/Depth Moderate Body Position L SL Comments w/cupping and MFR, ed use ball on wall Taping Back Comments 1 strip horizontal across Ari SI KT tape Body Location R knee Type of Tape Kinesio Tape Skin Inspection normal color and skin intact Comments Y for quad (inferior>superior patella/ distal quad- patellar lift), lat>medial V for medial glide Self-Care/Home Management Treatment Education Patient Education Body Mechanics,Joint Protection,Pain Management,Posture ,Safety Other Education Education importance of upright posture use of wall posture activity today and doorway pec stretch with HO provided for spinal support to decrease back pain and incorporate better body mechanics, verbalized understanding and self corrections by end of tx. Electric Stimulation Electric Stimulation Interferential Current (IFC) Body Location lumbar Intensity 26 Patient Position Sitting Combined With Heat/ Hot Pack Cold Comments good feedback response, started 19 then slowly increase intensity when body got used to it and could't feel it . Physical Therapy Assessment Goals stairs Professional Tutor Goal (LTG) Pt will be able to go up/down stairs reciprocally w/ rail w/o inc pain greater than 2/10 LTG Duration achieved 03/27 activity Professional Tutor Goal (LTG) Pt will be able to resume walks of at least 1/2 mile and be able to do house and yard work without pain greater than 2/10 in LB, RLE and R knee 03/27-3-10 R knee, back 01/24 with yard and house work and driving, doing so much building so hasn't walked LTG Duration 05/20 strength Short Term Goal (STG Pt will be demonstrate ability to perform at least 4 ) HEP exercises w/o cues 03/27-new focused HEP given STG Duration 04/01 Alf Goal (LTG) Pt will have 4+/5 hip abd strength and at least 3/5 LPM all planes to show improved strength to allow for ability to do typical ADLs w/dec pain. 03/27-improving LTG Duration 05/20 Assessment Summary Assessment Pt reported R low back, SI and posterior hip pain and tension reducation /10 to Very low (no scale rating given) post manual and IFC with MHP this tx. Instructed self STMs use of racquetball on wall with good feedback response for carryover for home. Pt better understanding verbal review of posture with compliment instruction of a pec stretch and wall posture performance added today with education for awareness need of more upright postural corrections, immediately corrects with cuing. PBX WIRE CHIEF provided HOs for added activities today. Physical Therapy Plan Frequency and Duration Frequency of 2x/Week Treatment Duration of 12 treatment (weeks) Plan of Care Start 02/19/25 Plan of Care End 05/20/25 Date Therapeutic Interventions Therapeutic Balance Training,Coordination Training,Gait Training, Interventions Home Exercise Program,Joint Mobilizations,Manual Therapy,Neuromuscular Re-education,Patient/Caregiver Education,Self-Care/Home Management,Soft Tissue Mobilization,Taping,Therapeutic Activities,Therapeutic Exercises Modalities Cold Pack/Ice Massage,Electric Stimulation,Hot Packs, Infrared Therapy,Traction- Mechanical,Ultrasound Next Visit Focus/Plan Next Note Type Treatment Note Next Visit Plan Recheck wall posture, pec stretch added for postural alignment self corrections, check in on previous HEP, focus on back pain reduction; manual for back and pelvis, progress core exercises, MOdalities MHP and Estim PRN
--- NOTE | 2025-04-18 13:42 | PT.OTN ---
Current Diagnoses Pain in right knee (04/18/25) Sciatica, right side (04/18/25) Physical Therapy Treatment Note PT OP: Lower Back/Lower Extremity Start: 02/19/25 17:06 Freq: Status: Active Protocol: Document 04/18/25 13:02 SP (Rec: 04/18/25 13:03 SP [id number]) Out-Patient Physical Therapy Visit Information Visit Information Visit Type Treatment Note Visit Note ART Nolany observed tx with pt permission. Visit Start Time 13:02 Visit Stop Time 13:42 Visit Number 6 Number of ESTATE PLANNER Visits 2 Progress Note Due 04/26/25 OP-PT Subjective Patient Comments Patient Comments Pt stated still working on building his studio for . He states his R knee has been doing well, not as painful while climbing in/out studio and stairs alot. He stated the Ktaping helped alot, removed yesterday and wants retaped end of tx. He is finding stretching, wall posture and Ktaping for back helping with postural alignment. Gym Equipment Shuttle Recovery Unilateral Squat Resistance 37# Reps/Time 10 Bilateral Squats Details added blue ball between knees Resistance 75# Shuttle Recovery Stable Platform Reps/Time 2x15 Therapeutic Exercises Standing Exercises Lateral step downs Standing Exercise added to HEP with HO Name Side bilateral Resistance AROM Equipment Used rail and 6 step Reps/Minutes 2x10 Comments cued knee alignment sidestep Standing Exercise Fwd & bwd feels better than lateral Name Side bilateral Equipment Used L2 at ankles Reps/Minutes //bars no UE support 3 laps f/b, 2 laps lateral before L hip bothersome6/10 Comments cues posture and no SB Manual Therapy Treatment Consent Patient gave verbal Yes consent for manual treatment Taping Back Body Location I strip vertical across Ari SI either side of LS. Treatment Focus SI support and self reminders of postural alignment Type of Tape Ktaping Skin Inspection normal coloring KT tape Body Location R knee Type of Tape Kinesio Tape Skin Inspection normal color and skin intact Comments Y for quad (inferior>superior patella/ distal quad- patellar lift), lat>medial V for medial glide Self-Care/Home Management Treatment Education Patient Education Body Mechanics,Home Exercise Program,Joint Protection, Pain Management,Posture,Safety Other Education Verbal education on TENS pad position placement for home unit, suggested bringing in his unit and can review proper set up and use. Cues for TA and pelvic, low back alignment during ther ex and knee alignment during lateral step downs. Physical Therapy Assessment Goals stairs Longterm Goal (LTG) Pt will be able to go up/down stairs reciprocally w/ rail w/o inc pain greater than 2/10 LTG Duration achieved 03/27 activity Longterm Goal (LTG) Pt will be able to resume walks of at least 1/2 mile and be able to do house and yard work without pain greater than 2/10 in LB, RLE and R knee 03/27-3-4/10 R knee, back 01/24 with yard and house work and driving, doing so much building so hasn't walked LTG Duration 05/20 strength Short Term Goal (STG Pt will be demonstrate ability to perform at least 4 ) HEP exercises w/o cues 03/27-new focused HEP given STG Duration 04/01 Manager Pharmaceutical Goal (LTG) Pt will have 4+/5 hip abd strength and at least 3/5 LPM all planes to show improved strength to allow for ability to do typical ADLs w/dec pain. 03/27-improving LTG Duration 05/20 Assessment Summary Assessment Tx focused on resisted ther ex for strength, cues for knee alignment and proper form. Suggested bringing in home TENS unit for further instruction on set up, pad placement for comfort home carryover. Physical Therapy Plan Frequency and Duration Frequency of 2x/Week Treatment Duration of 12 treatment (weeks) Plan of Care Start 02/19/25 Date Plan of Care End 05/20/25 Date Therapeutic Interventions Therapeutic Balance Training,Coordination Training,Gait Training, Interventions Home Exercise Program,Joint Mobilizations,Manual Therapy,Neuromuscular Re-education,Patient/Caregiver Education,Self-Care/Home Management,Soft Tissue Mobilization,Taping,Therapeutic Activities,Therapeutic Exercises Modalities Cold Pack/Ice Massage,Electric Stimulation,Hot Packs, Infrared Therapy,Traction- Mechanical,Ultrasound Next Visit Focus/Plan Next Note Type Progress Note Next Visit Plan Due for PN next tx 04/22 appt, PT to complete PN that day. Recheck wall posture, pec stretch added for postural alignment self corrections, check in on previous HEP, focus on back pain reduction; manual for back and pelvis, progress core exercises, MOdalities MHP and Estim PRN
--- NOTE | 2025-04-24 14:23 | PT.OPDS ---
Current Diagnoses Pain in right knee (04/24/25) Sciatica, right side (04/24/25) Visit Care Team Role Provider Type Osmin Bryant MD Attending Provider Physician Family Provider Primary Care Provider Referring Provider Specialty: Internal Medicine Address: [address] [place] [address], [address] [place] [address], [id number] Email: [email or web address] Visit Number Visit Number 7 Discharge Summary PT OP: Lower Back/Lower Extremity Start: 02/19/25 17:06 Freq: Status: Active Protocol: Document 04/24/25 11:37 [facility] (Rec: 04/24/25 12:36 [facility] [id number]) Out-Patient Physical Therapy Visit Information Visit Information Visit Type Discharge Summary Visit Start Time 11:37 Visit Stop Time 12:30 Visit Number 7 Number of CALENDER OPERATOR HELPER Visits 0 Progress Note Due 05/24/25 OP-PT Subjective Patient Comments Patient Comments certain twists give it trouble. only small tweaks. no lasting or uncomfortable. Climbing ladders a lot. back is always bad Posture Evaluation Heather Postural Classification System Lumbar Protective 3 Mechanism Left AP Lumbar Protective 3 Mechanism Right AP Lumbar Protective 3 Mechanism Left PA Lumbar Protective 3 Mechanism Right PA Hip Strength Hip Manual Muscle Testing Right Flexion (L2) 4+ Good+ Abduction 4+ Good+ External Rotation 5 Normal Internal Rotation 5 Normal Left Flexion (L2) 4- Good- Abduction 4+ Good+ External Rotation 5 Normal Internal Rotation 5 Normal Knee Strength Knee Manual Muscle Testing Right Flexion (S2) 5 Normal Extension (L3) 5 Normal Left Flexion (S2) 5 Normal Extension (L3) 5 Normal Ankle/Foot Strength Ankle and Foot Manual Muscle Testing Right Dorsiflexion (L4) 5 Normal Left Dorsiflexion (L4) 5 Normal Therapeutic Exercises Sitting Exercises sit back Reps/Minutes 10 pelvic tilt Reps/Minutes 2x10 Comments max cues for use of pelvis stretch Sitting Exercise 1. rotation stretch Name Side bilateral Reps/Minutes 30 sec ea Comments cues posture Standing Exercises Wall POsture Standing Exercise pillow behind head Name Equipment Used cont cues chin tuck/CS retraction neutral (limited, not able head on wall) Reps/Minutes 1 min with further time to get into good position Comments cued buttocks, spine roll up wall, TS and TA engagment, arms side Shld ER stretch Standing Exercise rodney pose at counter review, hip flexor B Name Side bilateral Reps/Minutes 3 min total Comments cues for position Manual Therapy Treatment Consent Patient gave verbal Yes consent for manual treatment Soft Tissue Mobilization back Body Location R ES and QL Mobilization Type Rolling Intensity/Depth Moderate Body Position L SL Joint Mobilizations rib Comments internal torsion R rib 11 c/r external torsion R rib 10 c/r Self-Care/Home Management Treatment Education Other Education 15 min: edu on importance of cont HEP and considering PT again next year. Edu to consider seeing spinal doctor and given name of [facility] hospital. Edu to try to use as few pillows under head as can comfortably to avoid pushing neck fwd more. 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 03/27-improving LTG Duration achieved mostly Assessment Summary Assessment Pt has too high copay to cont PT at this time. Plan is to DC at this time. He has made good progress w/knee pain where it only has occ twinges but cont to have back pain and R hip pain. He was given adjusted HEP for this region to focus on at home. Physical Therapy Plan Frequency and Duration Frequency of 2x/Week Treatment Duration of 12 treatment (weeks) Plan of Care Start 02/19/25 Date Plan of Care End 05/20/25 Date Discharge Physical Therapy Discharge Reasons Patient Request Discharge Comments copay too high at this time
== END 2025-04-26 08:58 | disposition home or self-care (01) ==
LOC: PHYS 11:30
PROVIDERS: Family Provider Internal Medicine; PCP Internal Medicine; Referring Provider Internal Medicine; Visit Provider Internal Medicine
DX: M25.561 Pain in right knee (principal); M54.31 Sciatica, right side
CPT/HCPCS: 97014; 97110; 97140; 97162; 97535; G0283